=== PATIENT | female | born 1955 | race African-American/Black ===

== ENCOUNTER 2022-02-27 16:12 | Emergency (ER) | payer OTHER ==
[~2022-02-27] VITALS: Ht 170.2 cm; Wt 53.0 kg
[~2022-02-27 16:12] MED LIST: UNK MEDS; XANAX
[2022-02-27 16:18] VITALS: BP 127/90
[2022-02-27] MEDS ORDERED: TETANUS AND DIPHTHERIA TOX/PF 0.5ML SYR (ADULT) IM ONE (18:15)
[2022-02-27] MEDS ORDERED: TETANUS, DIPHTHERIA, PERTUSSIS VAC/PF 0.5ML (>10YR OLD) IM ONE (18:54)
== END 2022-02-27 19:07 | disposition home or self-care (01) ==
LOC: ER 16:12
DX: S01.81XA Laceration without foreign body of other part of head, initial encounter (principal); R03.0 Elevated blood-pressure reading, without diagnosis of hypertension; W01.198A Fall on same level from slipping, tripping and stumbling with subsequent striking against other object, initial encounter; Y93.89 Activity, other specified; Y92.015 Private garage of single-family (private) house as the place of occurrence of the external cause
CPT/HCPCS: 90471; 90714; 90715; 99283